=== PATIENT | male | born 1985 | race Two or more races ===

== ENCOUNTER 2018-09-26 11:00 | Emergency (ER) | payer SELFPAY ==
[~2018-09-26] VITALS: Ht 188 cm; Wt 80.7 kg
[~2018-09-26 11:00] MED LIST: NKM
[2018-09-26 11:06] VITALS: BP 115/80
--- NOTE | 2018-09-26 11:10 | NUR ---
ED Nurse Note: Patient walked into ED c/o abdominal pain. patient reports n/v/d with fever for 2 days. patient is alert awake x4 ambulatory. breathing unlabored and even. placed patient on hospital gown.
--- NOTE | 2018-09-26 13:02 | Emergency Room Report ---
History of Present Illness General Chief Complaint: Nausea, Vomiting, and Diarrhea Source: Patient Present Illness HPI Patient is a 33-year-old male presents after increased nausea and vomiting. Patient reports having multiple episodes of epigastric pain. He reports having intermittent morning headaches. He states that he has been vomiting multiple times. He denies any hematuria or bloody stools. He reports having weight loss of approximately 30 pounds. He denies any prior history of any definite medical problems. He denies any alcohol use. Allergies: Coded Allergies: No Known Allergies (Unverified , 09/16/13) Patient History Past Medical History: see triage record Reviewed Nursing Documentation: PMH: Agreed; PSxH: Agreed Nursing Documentation-PMH Past Medical History: No History, Except For Review of Systems All Other Systems: negative except mentioned in HPI Physical Exam Vital Signs Date Time Temp Pulse Resp B/P (MAP) Pulse Ox O2 Delivery O2 Flow Rate FiO2 09/26/18 11:06 97.7 80 19 115/80 (92) 100 Room Air Sp02 EP Interpretation: reviewed, normal General Appearance: normal inspection, well appearing, alert, GCS 15, cachetic Head: atraumatic ENT: normal ENT inspection, hearing grossly normal, normal voice Neck: normal inspection, full range of motion, supple, no bony tend Respiratory: normal inspection, lungs clear, normal breath sounds, no respiratory distress, no retraction, no wheezing Cardiovascular #1: regular rate, rhythm, no edema Gastrointestinal: normal inspection, normal bowel sounds, non tender, soft, no guarding, no hernia Genitourinary: no CVA tenderness Musculoskeletal: normal inspection, back normal, normal range of motion Neurologic: normal inspection, alert, oriented x3, responsive, transfer table operator III-XII nml as tested, speech normal Psychiatric: normal inspection, judgement/insight normal, mood/affect normal Medical Decision Making Diagnostic Impression: Primary Impression: Failure to thrive in adult Additional Impressions: Abdominal pain Unexplained weight loss ER Course Patient presented for generalized weakness and weight loss. Differential diagnosis include was not limited to tuberculosis, malignancy, hyperthyroidism, HIV, malabsorption syndrome among others. Because of complexity of patient's case laboratory testing and imaging studies were ordered.Patient's laboratory testing was noted to be unremarkable. Patient reportedly had been having night sweats as well as weight loss associated with some nausea and diarrhea. CT imaging of the head showed no evidence of acute intracranial pathology. Patient was noted to have some concerning symptoms for unexplained weight loss and difficulty maintaining weight.Unexplained weight loss. Labs Test 09/26/18 13:10 White Blood Count 7.5 K/UL (4.8-10.8) Red Blood Count 4.78 M/UL (4.70-6.10) Hemoglobin 15.1 G/DL (14.2-18.0) Hematocrit 45.0 % (42.0-52.0) Mean Corpuscular Volume 94 FL (80-99) Mean Corpuscular Hemoglobin 31.5 PG (27.0-31.0) Mean Corpuscular Hemoglobin Concent 33.5 G/DL (32.0-36.0) Red Cell Distribution Width 11.7 % (11.6-14.8) Platelet Count 238 K/UL (150-450) Mean Platelet Volume 7.7 FL (6.5-10.1) Neutrophils (%) (Auto) 73.1 % (45.0-75.0) Lymphocytes (%) (Auto) 19.2 % (20.0-45.0) Monocytes (%) (Auto) 6.8 % (1.0-10.0) Eosinophils (%) (Auto) 0.2 % (0.0-3.0) Basophils (%) (Auto) 0.7 % (0.0-2.0) Urine Color Yellow Urine Appearance Clear Urine pH 6 (4.5-8.0) Urine Specific [place] 1.015 (1.005-1.035) Urine Protein 2+ (NEGATIVE) Urine Glucose (UA) Negative (NEGATIVE) Urine Ketones Negative (NEGATIVE) Urine Blood Negative (NEGATIVE) Urine Nitrite Negative (NEGATIVE) Urine Bilirubin Negative (NEGATIVE) Urine Urobilinogen Normal MG/DL (0.0-1.0) Urine Leukocyte Esterase Negative (NEGATIVE) Urine RBC 2-4 /HPF (0 - 0) Urine WBC 2-4 /HPF (0 - 0) Urine Squamous Epithelial Cells Occasional /LPF Urine Bacteria Occasional /HPF (NONE) Urine Mucus Moderate /LPF (NONE/OCC) Sodium Level 140 MMOL/L (136-145) Potassium Level 4.0 MMOL/L (3.5-5.1) Chloride Level 102 MMOL/L (98-107) Carbon Dioxide Level 29 MMOL/L (21-32) Anion Gap 9 mmol/L (5-15) Blood Urea Nitrogen 7 mg/dL (7-18) Creatinine 0.9 MG/DL (0.55-1.30) Estimat Glomerular Filtration Rate > 60 mL/min (>60) Glucose Level 87 MG/DL (74-106) Calcium Level 9.9 MG/DL (8.5-10.1) Total Bilirubin 0.7 MG/DL (0.2-1.0) Aspartate Amino Transf (AST/SGOT) 21 U/L (15-37) Alanine Aminotransferase (ALT/SGPT) 15 U/L (12-78) Alkaline Phosphatase 111 U/L (46-116) Troponin I 0.000 ng/mL (0.000-0.056) Total Protein 8.0 G/DL (6.4-8.2) Albumin 4.7 G/DL (3.4-5.0) Globulin 3.3 g/dL Albumin/Globulin Ratio 1.4 (1.0-2.7) Lipase 150 U/L (73-393) Last Vital Signs Date Time Temp Pulse Resp B/P (MAP) Pulse Ox O2 Delivery O2 Flow Rate FiO2 09/26/18 11:06 97.7 80 19 115/80 100 Room Air Scripts Lipase/Protease/Amylase (CREON DR 12,000 UNITS CAPSULE) 1 Each Capsule.dr 1 EACH PO THREE TIMES A DAY, #30 CAP Prov: Florian Rico MD 09/26/18 Dicyclomine Hcl* (DICYCLOMINE HCL*) 10 Mg Capsule 10 MG ORAL QID, #20 CAP Prov: Florian Rico MD 09/26/18 Referrals: NOT CHOSEN [facility]/,REFERRING (PCP) Florian Rico MD Sep 26, 2018 13:02
[2018-09-26] MEDS ORDERED: Isovue-300 100ml vial INJ PRN (13:15)
[2018-09-26 13:29] LABS: APPEARANCE,URINE CLEAR; BILIRUBIN, URINE NEGATIVE (NEGATIVE); GLUCOSE, URINE (UA) NEGATIVE (NEGATIVE); KETONES,URINE NEGATIVE (NEGATIVE); LEUKOCYTE ESTERASE ,URINE NEGATIVE (NEGATIVE); NITRITE,URINE NEGATIVE (NEGATIVE); PH,URINE 6 (4.5-8.0); PROTEIN,URINE 2+ (NEGATIVE); UROBILINOGEN,URINE NORMAL MG/DL (0.0-1.0)
--- NOTE | 2018-09-26 13:29 | NUR ---
ED Nurse Note: patient taken to CT in stable condition
[2018-09-26 13:42] LABS: COLOR,URINE YELLOW
[2018-09-26 13:43] LABS: BASOPHILS % (AUTO) 0.7 % (0.0-2.0); EOSINOPHILS % (AUTO) 0.2 % (0.0-3.0); HEMOGLOBIN 15.1 G/DL (14.2-18.0); LYMPHOCYTES % (AUTO) 19.2 % (20.0-45.0); MEAN CORPUSCULAR VOLUME 94 FL (80-99); MONOCYTES % (AUTO) 6.8 % (1.0-10.0); NEUTROPHILS % (AUTO) 73.1 % (45.0-75.0); PLATELET COUNT 238 K/UL (150-450); RED BLOOD COUNT 4.78 M/UL (4.70-6.10); RED CELL DISTRIBUTION WIDTH 11.7 % (11.6-14.8); WHITE BLOOD COUNT 7.5 K/UL (4.8-10.8)
[2018-09-26 13:50] LABS: ANION GAP 9 mmol/L (5-15); BLOOD UREA NITROGEN 7 mg/dL (7-18); CALCIUM 9.9 MG/DL (8.5-10.1); CARBON DIOXIDE 29 MMOL/L (21-32); CHLORIDE 102 MMOL/L (98-107); CREATININE 0.9 MG/DL (0.55-1.30); SODIUM 140 MMOL/L (136-145)
[2018-09-26 13:54] LABS: ALANINE AMINOTRANSFERASE 15 U/L (12-78); ALBUMIN 4.7 G/DL (3.4-5.0); ALBUMIN/GLOBULIN RATIO 1.4 (1.0-2.7); ALKALINE PHOSPHATASE 111 U/L (46-116); ASPARTATE AMINO TRANSFERASE 21 U/L (15-37); BILIRUBIN,TOTAL 0.7 MG/DL (0.2-1.0)
--- NOTE | 2018-09-26 13:57 | Diagnostic Imaging Report ---
Indication: Headache Technique: Contiguous 5 mm thick transaxial imaging of the head obtained in a Siemens Sensation [address] scanner. Soft tissue and bone windows generated. Automatic Exposure Control was utilized. Total Dose length Product (DLP): 1383.[address] Dose Index Volume (CTDIvol): 70.38 mGy Comparison: none Findings: The size and configuration of the cortical sulci, basal cisterns, and ventricles are within normal limits for age. There is no mass effect, midline shift, or edema identified. There is no evidence of acute hemorrhage or abnormal intra-axial or extra-axial fluid collections. The bones and soft tissues are unremarkable. Impression: No mass effect, edema or acute bleed. The CT scanner at [facility] is accredited by the [employer] and the scans are performed using dose optimization techniques as appropriate to a performed exam including Automatic Exposure control.
--- NOTE | 2018-09-26 16:24 | Diagnostic Imaging Report ---
Indication: Dyspnea Comparison: 09/16/2013 A single view chest radiograph was obtained. Findings: Cardiomediastinal appearance is within normal limits for age. The lungs are clear. Pulmonary vascularity is appropriate. The diaphragmatic contour is smooth and costophrenic angles are sharp. No pleural effusions are identified. The bones are unremarkable. Impression: No acute findings
[2018-09-26] MEDS ORDERED: DICYCLOMINE HCL10 MG ORAL (16:41)
[2018-09-26] MEDS ORDERED: CREON DR 12,001 EACH PO (16:41)
--- NOTE | 2018-09-26 16:57 | Diagnostic Imaging Report ---
Indication: Abdominal pain. Nausea vomiting. Unexplained weight loss Technique: Continuous helical transaxial imaging of the abdomen and pelvis was obtained from the lung bases to the pubic symphysis during intravenous contrast administration. Coronal 2-D reformats were also obtained. Study obtained in a Siemens sensation [address] Automatic Exposure Control was utilized. Total Dose length Product (DLP): 454.[address] Dose Index Volume (CTDIvol): 8.49 mGy Comparison: None Findings: Lung bases are clear. There is no free fluid. Bowel gas pattern appears normal. No adenopathy identified. The liver and spleen, pancreas, adrenal glands and kidneys, gallbladder appear normal. There is no hydronephrosis. Patient is severely cachectic. The stomach and duodenum to not appear distended. The aorta mesenteric angle appears relatively normal. However given the history of nausea and vomiting, weight loss consider SMA syndrome given the decreased distance between the proximal SMA and aorta on the lateral reconstructed sequence. There is no evidence of bowel obstruction with contrast and multiple loops of small bowel and colon. IMPRESSION: Negative evaluation except for severe cachexia. Consider SMA syndrome given the diminished overall aorta mesenteric distance and severe unexplained weight loss, nausea and vomiting. Consider follow-up evaluation with a limited upper GI examination. The CT scanner at [facility] is accredited by the [employer] and the scans are performed using dose optimization techniques as appropriate to a performed exam including Automatic Exposure control.
--- NOTE | 2018-09-26 17:15 | Emergency Room Report ---
Physical Exam Vital Signs Date Time Temp Pulse Resp B/P (MAP) Pulse Ox O2 Delivery O2 Flow Rate FiO2 09/26/18 11:06 97.7 80 19 115/80 (92) 100 Room Air Medical Decision Making Diagnostic Impression: Primary Impression: Failure to thrive in adult Additional Impressions: Unexplained weight loss Abdominal pain ER Course Assumed care of the patient from Dr. Rico approximately [address] abdomen results. Imaging is returned unremarkable. I discussed with the patient the prospect of admission for medical work-up of weight loss, failure to thrive though the patient states he was feeling much better than on his original presentation at this time elected to follow-up as an outpatient. He was given the names of nearby clinics where he can establish as a primary care and given strict return precautions. Patient and his girlfriend understand and agree with this treatment plan Please note that this report is being documented using [employer] technology. This can lead to erroneous entry secondary to incorrect interpretation by the dictating instrument. Last Vital Signs Date Time Temp Pulse Resp B/P (MAP) Pulse Ox O2 Delivery O2 Flow Rate FiO2 09/26/18 11:06 97.7 80 19 115/80 100 Room Air Disposition: HOME, SELF-CARE Condition: Stable Scripts Lipase/Protease/Amylase (CREON DR 12,000 UNITS CAPSULE) 1 Each Capsule. 1 EACH PO THREE TIMES A DAY, #30 CAP Prov: Florian Rico MD 09/26/18 Dicyclomine Hcl* (DICYCLOMINE HCL*) 10 Mg Capsule 10 MG ORAL QID, #20 CAP Prov: Florian Rico MD 09/26/18 Referrals: NOT CHOSEN [facility]/,REFERRING (PCP) Patient Instructions: Abdominal Pain, Adult Additional Instructions: Follow up with primary doctor for further workup of weight loss. Cortes Braxton MD Sep 26, 2018 17:15
[2018-09-26 17:26] VITALS: BP 115/80
--- NOTE | 2018-09-26 17:26 | NUR ---
ER DISCHARGE NOTE: Patient is cleared to be discharged per ERMD DR ANDERSON/ ALFONSO, pt is aox4, on room air, with stable vital signs. pt was given dc and prescription instructions, pt was able to verbalize understanding, pt id band and iv site removed without complications. pt is able to ambulate with steady gait. pt took all belongings.
== END 2018-09-26 17:26 | disposition home or self-care (01) ==
LOC: EMR 11:19 → CANBEDREQ 18:11
DX: R62.7 Adult failure to thrive (principal); R10.9 Unspecified abdominal pain; R63.4 Abnormal weight loss; Z68.22 Body mass index [BMI] 22.0-22.9, adult
CPT/HCPCS: 36415; 70450; 71045; 74177; 80053; 81003; 83690; 84484; 85025; 86703; 93005; 96361; 96374; 96375; 99284; J2405; Q9967; S0028